=== PATIENT | female | born 1990 | race Caucasian/White ===

== ENCOUNTER 2018-03-04 03:23 | Inpatient (IN) ==
[2018-03-04 04:05] LABS: Apearance,Urine CLOUDY (Clear); Bilirubin,Urine Negative (Negative); Blood, Urine Moderate mg/dL (Negative); Glucose,Urine (UA) Negative (Negative); Ketones,Urine Negative (Negative); Nitrite,Urine Negative (Negative); Protein,Urine Negative; RBC,Urine 2 /HPF (0-4); Squamous Epithelial Cell,Urine Occasional /HPF (0-10); Urine Color Yellow (Yellow); Urine Specific Gravity 1.002 (1.001-1.035); Urine Urobilinogen < 2.0 EU/DL (0.2-1.0); WBC,Urine 118 /HPF (0-6)
[2018-03-04] MEDS ORDERED: ACETAMINOPHEN 325 MG TABLET PO PRN ×2 (06:36→15:21)
[2018-03-04] MEDS ORDERED: BUTORPHANOL 2 MG/ML VIAL IV PRN (06:36)
[2018-03-04] MEDS ORDERED: ONDANSETRON 4 MG/2 ML VIAL IV PRN ×2 (06:36→15:21)
[2018-03-04] MEDS ORDERED: MEPERIDINE 50 MG/1 ML VIAL IV PRN (06:36)
[2018-03-04] MEDS ORDERED: OXYTOCIN/LR 20 UNIT/1,000 ML BAG IV SCH (07:00)
[2018-03-04 07:10] LABS: Basophils % 0.3 % (0.0-0.8); Eosinophils # 0.1 10*3/uL (0.0-0.87); Eosinophils % 0.7 % (0.00-10.9); Hematocrit 28.7 VOL% (35.7-47.0); Hemoglobin 9.5 GM/DL (12.0-16.0); Immature Granulocytes % 1.5 %; Immature Granulocytes Absolute 0.21 #; Lymphocytes # 1.9 10*3/uL (1.4-4.0); Lymphocytes % 13.5 % (21.3-54.2); Mean Corpuscular HGB Conc 33.1 GM/DL (32-36); Mean Corpuscular Hemoglobin 27 PG (27-34); Mean Corpuscular Volume 80.4 FL (87-102); Mean Platelet Volume 9.6 FL (9.6-12.0); Monocytes # 0.7 10*3/uL (0.11-0.8); Monocytes % 5.2 % (1.7-12.7); Neutrophils # 11.2 10*3/uL (1.4-7.4); Neutrophils % 78.8 % (38.7-73.9); Platelet Count 193 T/CUMM (130-400); Red Blood Count 3.57 MC/CUMM (3.8-5.5); White Blood Count 14.2 T/CUMM (4-12)
[2018-03-04] MEDS: LACTATED RINGERS 1,000 ML IV SCH ×2 (07:36→14:21)
[2018-03-04] MEDS ORDERED: CITRIC ACID/SODIUM CITRATE 30 ML UDCUP PO ONE (07:44)
[2018-03-04] MEDS ORDERED: ePHEDrine 50 MG/ML AMP IV PRN (07:44)
[2018-03-04] MEDS ORDERED: diphenhydrAMINE 50 MG/1 ML VIAL IV PRN ×2 (07:44)
[2018-03-04] MEDS ORDERED: FAMOTIDINE 20 MG/2 ML VIAL IV ONE (07:44)
[2018-03-04] MEDS ORDERED: LACTATED RINGERS 1,000 ML IV ONE (07:44)
[2018-03-04] MEDS ORDERED: fentaNYL 2 MCG/ROPIV 0.2% EPID 150 ML EPIDURAL SCH (08:00)
[2018-03-04 11:32] LABS: Apearance,Urine CLEAR (Clear); Bacteria,Urine Occasional /HPF (Few); Bilirubin,Urine Negative (Negative); Blood, Urine Negative (Negative); Glucose,Urine (UA) Negative (Negative); Ketones,Urine Negative (Negative); Nitrite,Urine Negative (Negative); Protein,Urine Negative; RBC,Urine 1 /HPF (0-4); Squamous Epithelial Cell,Urine Occasional /HPF (0-10); Urine Color Colorless (Yellow); Urine Specific Gravity 1.003 (1.001-1.035); Urine Urobilinogen < 2.0 EU/DL (0.2-1.0); WBC,Urine <1 /HPF (0-6)
[2018-03-04] MEDS ORDERED: MEPERIDINE 25 MG/1 ML VIAL ONE (14:50)
[2018-03-04] MEDS ORDERED: miSOPROStol 200 MCG TABLET ONE (14:50)
[2018-03-04] MEDS ORDERED: LIDOCAINE 1% 50 ML VIAL ONE (14:50)
[2018-03-04] MEDS ORDERED: METHYLERGONOVINE 0.2 MG/1 ML AMP ONE (14:51)
[2018-03-04] MEDS ORDERED: LANOLIN 50% CREAM 0.3 OZ TUBE TOP PRN (15:21)
[2018-03-04] MEDS ORDERED: HYDROCORTISONE 2.5% RECTAL CREAM 30 GM TUBE TOP PRN (15:21)
[2018-03-04] MEDS ORDERED: BISACODYL 10 MG SUPP RECTAL PRN (15:21)
[2018-03-04] MEDS ORDERED: WITCH HAZEL PADS 100/JAR TOP PRN (15:21)
[2018-03-04] MEDS ORDERED: oxyCODONE/ACETAMINOPHEN 5-325 MG TABLET PO PRN ×2 (15:21)
[2018-03-04] MEDS ORDERED: BENZOCAINE 20%/MENTHOL 0.5% SPRAY 56 GM CAN TOP PRN (15:21)
[2018-03-04] MEDS ORDERED: OXYTOCIN/LR 20 UNIT/1,000 ML BAG IV ONE (15:21)
[2018-03-04] MEDS ORDERED: DIPH/TET/ACEL PERT BOOSTER VACCINE 0.5 ML VIAL IM ONE (15:30)
[2018-03-04] MEDS ORDERED: MEASLES/MUMPS/RUBELLA VACCINE 0.5 ML VIAL SUBCUT ONE (15:30)
[2018-03-04 15:42] LABS: Cord Venous Blood HCO3 19.9 MMOL/L; Cord Venous Blood PCO2 50.6 MMHG; Cord Venous Blood PO2 21.4
[2018-03-04] MEDS ORDERED: RHO(D) IMMUNE GLOBULIN 300 MCG SYRINGE IM ONE (15:45)
[2018-03-04] MEDS: IBUPROFEN 800 MG TABLET PO PRN (21:59)
[2018-03-04] MEDS: DOCUSATE SODIUM 100 MG CAPSULE PO SCH (21:59)
[2018-03-05] MEDS: IBUPROFEN 800 MG TABLET PO PRN (05:51)
[2018-03-05] MEDS ORDERED: IBUPROFEN 100 MG/5 ML UDCUP PO PRN (05:58)
[2018-03-05 06:15] LABS: Basophils % 0.2 % (0.0-0.8); Eosinophils # 0.2 10*3/uL (0.0-0.87); Hematocrit 27.8 VOL% (35.7-47.0); Immature Granulocytes % 0.9 %; Immature Granulocytes Absolute 0.14 #; Lymphocytes # 2.2 10*3/uL (1.4-4.0); Lymphocytes % 14.3 % (21.3-54.2); Mean Corpuscular HGB Conc 32.4 GM/DL (32-36); Mean Corpuscular Hemoglobin 26 PG (27-34); Mean Corpuscular Volume 80.8 FL (87-102); Mean Platelet Volume 9.6 FL (9.6-12.0); Monocytes % 6.3 % (1.7-12.7); Neutrophils # 11.8 10*3/uL (1.4-7.4); Neutrophils % 77.3 % (38.7-73.9); Platelet Count 157 T/CUMM (130-400); Red Blood Count 3.44 MC/CUMM (3.8-5.5); White Blood Count 15.3 T/CUMM (4-12)
[2018-03-05] MEDS ORDERED: MULTIVITAMIN (PRENATAL) TABLET PO SCH (09:00)
[2018-03-05] MEDS: DOCUSATE SODIUM 100 MG CAPSULE PO SCH ×2 (11:16→20:52)
[2018-03-06 08:20] VITALS: BP 117/75
[2018-03-06] MEDS: DOCUSATE SODIUM 100 MG CAPSULE PO SCH (09:26)
[2018-03-06] MEDS ORDERED: DIPH/TET/ACEL PERT BOOSTER VACCINE 0.5 ML VIAL IM ONE (11:05)
[2018-03-06] MEDS ORDERED: FLUCONAZOLE 100 MG TABLET PO ONE (11:42)
== END 2018-03-06 14:10 | disposition home or self-care (01) | DRG 775 ==
LOC: N.LDOUT 03:23 → N.LD 03:28 → N.OB 20:27
PROVIDERS: ADMIT Specialist; ATTEND Specialist

== ENCOUNTER 2019-11-16 17:02 | Inpatient (IN) ==
[2019-11-16] MEDS ORDERED: BUTORPHANOL 2 MG/ML VIAL IV PRN (17:44)
[2019-11-16] MEDS ORDERED: ONDANSETRON 4 MG/2 ML VIAL IV PRN (17:44)
[2019-11-16] MEDS ORDERED: AMPICILLIN INJ 2,000 MG in SODIUM CHLORIDE 0.9% 100 ML IV ONE (17:46)
[2019-11-16] MEDS ORDERED: CITRIC ACID/SODIUM CITRATE 30 ML UDCUP PO ONE (18:00)
[2019-11-16] MEDS ORDERED: fentaNYL 2 MCG/ROPIV 0.2% EPID 100 ML EPIDURAL SCH (18:00)
[2019-11-16] MEDS ORDERED: ePHEDrine 50 MG/ML AMP IV PRN (18:00)
[2019-11-16] MEDS ORDERED: LACTATED RINGERS 1,000 ML IV SCH (18:00)
[2019-11-16] MEDS ORDERED: diphenhydrAMINE 50 MG/1 ML VIAL IV PRN ×2 (18:00)
[2019-11-16] MEDS ORDERED: LACTATED RINGERS 1,000 ML IV ONE (18:00)
[2019-11-16] MEDS ORDERED: FAMOTIDINE 20 MG/2 ML VIAL IV ONE (18:00)
[2019-11-16] MEDS ORDERED: hydrOXYzine HCL 25 MG/1 ML VIAL IM PRN (18:00)
[2019-11-16] MEDS ORDERED: PROMETHAZINE 25 MG/1 ML VIAL IM ONE (18:00)
[2019-11-16] MEDS ORDERED: NALOXONE 0.4 MG/ML VIAL IV PRN (18:00)
[2019-11-16 18:02] LABS: Basophils % 0.3 % (0.0-0.8); Eosinophils # 0.1 10*3/uL (0.0-0.87); Eosinophils % 0.9 % (0.00-10.9); Hematocrit 34.6 VOL% (35.7-47.0); Hemoglobin 11.1 GM/DL (12.0-16.0); Immature Granulocytes % 1.1 %; Immature Granulocytes Absolute 0.11 #; Lymphocytes # 2.1 10*3/uL (1.4-4.0); Lymphocytes % 20.9 % (21.3-54.2); Mean Corpuscular HGB Conc 32.1 GM/DL (32-36); Mean Corpuscular Volume 83.6 FL (87-102); Mean Platelet Volume 9.6 FL (9.6-12.0); Monocytes % 4.3 % (1.7-12.7); Neutrophils % 72.5 % (38.7-73.9); Platelet Count 214 T/CUMM (130-400); Red Blood Count 4.14 MC/CUMM (3.8-5.5); Red Cell Distribution Width 14.3 % (9.3-17.3); White Blood Count 9.9 T/CUMM (4-12)
[2019-11-16] MEDS: LACTATED RINGERS 1,000 ML IV SCH ×2 (18:56→23:36)
[2019-11-16 20:27] LABS: Apearance,Urine CLEAR (Clear); Bilirubin,Urine Negative (Negative); Blood, Urine Negative (Negative); Glucose,Urine (UA) Negative (Negative); Hyaline Casts,Urine 1 /LPF (0-3); Ketones,Urine Negative (Negative); Mucus,Urine Occasional /LPF (Occasional); Nitrite,Urine Negative (Negative); Protein,Urine Negative; RBC,Urine <1 /HPF (0-4); Urine Color Straw (Yellow); Urine Specific Gravity 1.009 (1.001-1.035); Urine Urobilinogen < 2.0 EU/DL (0.2-1.0); WBC,Urine <1 /HPF (0-6)
[2019-11-16] MEDS: AMPICILLIN INJ 1,000 MG in SODIUM CHLORIDE 0.9% 100 ML IV SCH (23:41)
[2019-11-17] MEDS: LACTATED RINGERS 1,000 ML IV SCH (01:46)
[2019-11-17] MEDS: AMPICILLIN INJ 1,000 MG in SODIUM CHLORIDE 0.9% 100 ML IV SCH (03:59)
[2019-11-17] MEDS ORDERED: OXYTOCIN/LR 20 UNIT/1,000 ML BAG IV SCH (06:00)
[2019-11-17] MEDS ORDERED: miSOPROStoL 200 MCG TABLET ONE (08:06)
[2019-11-17] MEDS ORDERED: TRANEXAMIC ACID 1,000 MG/10 ML VIAL ONE (08:07)
[2019-11-17] MEDS ORDERED: METHYLERGONOVINE 0.2 MG/1 ML AMP ONE (08:07)
[2019-11-17] MEDS ORDERED: OXYTOCIN/LR 20 UNIT/1,000 ML BAG IV ONE ×2 (08:07→09:12)
[2019-11-17] MEDS ORDERED: CARBOPROST TROMETHAMINE 250 MCG/ML AMP IM ONE (08:08)
[2019-11-17] MEDS ORDERED: LANOLIN 50% CREAM 0.3 OZ TUBE TOP PRN (09:12)
[2019-11-17] MEDS ORDERED: RHO(D) IMMUNE GLOBULIN 300 MCG SYRINGE IM ONE (09:12)
[2019-11-17] MEDS ORDERED: MEASLES/MUMPS/RUBELLA VACCINE 0.5 ML VIAL SUBCUT ONE (09:12)
[2019-11-17] MEDS ORDERED: ONDANSETRON 4 MG/2 ML VIAL IV PRN (09:12)
[2019-11-17] MEDS ORDERED: oxyCODONE/ACETAMINOPHEN 5-325 MG TABLET PO PRN ×2 (09:12)
[2019-11-17] MEDS ORDERED: HYDROCORTISONE 2.5% RECTAL CREAM 30 GM TUBE TOP PRN (09:12)
[2019-11-17] MEDS ORDERED: WITCH HAZEL PADS 100/JAR TOP PRN (09:12)
[2019-11-17] MEDS ORDERED: IBUPROFEN 800 MG TABLET PO PRN (09:12)
[2019-11-17] MEDS ORDERED: BISACODYL 10 MG SUPP RECTAL PRN (09:12)
[2019-11-17] MEDS ORDERED: ACETAMINOPHEN 325 MG TABLET PO PRN (09:12)
[2019-11-17] MEDS ORDERED: BENZOCAINE 20%/MENTHOL 0.5% SPRAY 56 GM CAN TOP PRN (09:12)
[2019-11-17] MEDS ORDERED: DIPH/TET/ACEL PERT BOOSTER VACCINE 0.5 ML VIAL IM ONE (09:12)
[2019-11-17] MEDS ORDERED: IBUPROFEN 400 MG TABLET PO PRN (14:47)
[2019-11-17] MEDS: IBUPROFEN 100 MG/5 ML UDCUP PO PRN ×2 (15:34→21:16)
[2019-11-17] MEDS ORDERED: DOCUSATE SODIUM 100 MG CAPSULE PO SCH (21:00)
[2019-11-17] MEDS: DOCUSATE SODIUM 100 MG/10 ML UDCUP PO SCH (21:17)
[2019-11-18 05:02] LABS: Basophils % 0.3 % (0.0-0.8); Eosinophils # 0.2 10*3/uL (0.0-0.87); Eosinophils % 1.8 % (0.00-10.9); Hematocrit 29.3 VOL% (35.7-47.0); Hemoglobin 9.2 GM/DL (12.0-16.0); Immature Granulocytes % 0.8 %; Immature Granulocytes Absolute 0.09 #; Lymphocytes # 2.2 10*3/uL (1.4-4.0); Lymphocytes % 19.9 % (21.3-54.2); Mean Corpuscular HGB Conc 31.4 GM/DL (32-36); Mean Corpuscular Volume 84.4 FL (87-102); Mean Platelet Volume 9.7 FL (9.6-12.0); Neutrophils % 72.2 % (38.7-73.9); Platelet Count 164 T/CUMM (130-400); Red Blood Count 3.47 MC/CUMM (3.8-5.5); Red Cell Distribution Width 14.5 % (9.3-17.3); White Blood Count 10.9 T/CUMM (4-12)
[2019-11-18] MEDS: IBUPROFEN 100 MG/5 ML UDCUP PO PRN (08:07)
[2019-11-18] MEDS: DOCUSATE SODIUM 100 MG/10 ML UDCUP PO SCH ×2 (08:10→20:30)
[2019-11-18] MEDS ORDERED: INFLUENZA VIRUS VACCINE 0.5 ML SYRINGE IM ONE (18:10)
[2019-11-19] MEDS: IBUPROFEN 100 MG/5 ML UDCUP PO PRN (03:22)
[2019-11-19 07:29] VITALS: BP 120/73
[2019-11-19] MEDS: DOCUSATE SODIUM 100 MG/10 ML UDCUP PO SCH (09:50)
== END 2019-11-19 12:00 | disposition home or self-care (01) | DRG 807 ==
LOC: N.LDOUT 17:02 → N.LD 17:03 → N.OB 11-17 11:55
PROVIDERS: ADMIT Specialist; ATTEND Specialist